=== PATIENT | male | born 1985 | race Caucasian/White ===

== ENCOUNTER 2017-03-06 07:23 | Emergency (ER) | payer BC, OTHER ==
[~2017-03-06] VITALS: Ht 182.9 cm; Wt 103.3 kg
[2017-03-06 07:24] VITALS: BP 143/93; PULSE 73; RESP 16; TEMP 98.2; O2SAT 97
--- NOTE | 2017-03-06 07:46 | PD ---
HPI Chief Complaint: Fever Time Seen by Provider: 07:34 Travel History International Travel<30 days: No Contact w/Intl Traveler<30days: No Traveled to known affect area: No History of Present Illness HPI This patient complains of fever. Duration 3 days. Severity is moderate. He took his temperature at home yesterday was 100.7. He had some myalgias but otherwise no symptoms. No cough or diarrhea or vomiting or any respiratory or GI symptoms at all. PFSH Past Medical History Medical History: Denies Significant Hx Hx Anticoagulant Therapy: No Cardiovascular Problems: Yes (HTN) Diabetes: No Past Surgical History Surgical History: No Previous Surgery Social History Alcohol Use: Yes (soc) Tobacco Use: No Substance Use: No Allergies-Medications (Allergen,Severity, Reaction): Coded Allergies: No Known Allergies (Unverified , 03/06/17) Reported Meds & Prescriptions Reported Meds & Active Scripts Active No Active Prescriptions or Reported Medications Review of Systems General / Constitutional: Positive: Fever HENT: No: Headaches Cardiovascular: No: Chest Pain or Discomfort Respiratory: No: Cough Gastrointestinal: No: Vomiting Physical Exam Narrative GENERAL: Well-nourished, well-developed patient in no apparent distress. SKIN: Focused skin assessment reveals no rash and nodules. Skin is Warm and dry. HEAD: Atraumatic. Normocephalic. EYES: Pupils equal and round. No scleral icterus. No injection or drainage. ENT: No nasal bleeding or discharge. Mucous membranes pink and moist. NECK: Trachea midline. No JVD. No meningeal signs. Throat clear and TMs normal CARDIOVASCULAR: Regular rate and rhythm. No murmur appreciated. RESPIRATORY: No accessory muscle use. Clear to auscultation. Breath sounds equal bilaterally. GASTROINTESTINAL: Abdomen soft, non-tender, nondistended. Hepatic and splenic margins not palpable. MUSCULOSKELETAL: No obvious deformities. No clubbing. No cyanosis. No edema. NEUROLOGICAL: Awake and alert. No obvious cranial nerve deficits. Motor grossly within normal limits. Normal speech. PSYCHIATRIC: Appropriate mood and affect; insight and judgment normal. Data Data Last Documented VS Vital Signs Date Time Temp Pulse Resp B/P Pulse Ox O2 Delivery O2 Flow Rate FiO2 03/06/17 07:24 98.2 73 16 143/93 97 MDM Medical Decision Making Medical Screen Exam Complete: Yes Emergency Medical Condition: Yes Medical Record Reviewed: Yes Differential Diagnosis Viral syndrome, bronchitis, flu Narrative Course I have reviewed the patient's electronic medical record. Etiology of his fever is unclear. He looks clinically well and has normal vital signs and no fever now. His exam is benign and he has very minimal symptoms other than the fever Recommend primary care follow-up and supportive care discussed Diagnosis Primary Impression: Febrile illness, acute Additional Instructions: The patient was advised to follow up with their physician and return if they worsen. Med/Other Pt SpecificInfo: Other Scripts No Active Prescriptions or Reported Meds Disposition: DISCHARGE HOME Condition: Stable Leonel Vernon MD Mar 06, 2017 07:46
== END 2017-03-06 08:11 | disposition home or self-care (01) ==
LOC: PHED 07:23
DX: R50.9 Fever, unspecified (principal); I10 Essential (primary) hypertension; M79.1 Myalgia
CPT/HCPCS: 99281